=== PATIENT | female | born 1980 | race Caucasian/White ===

== ENCOUNTER 2022-11-23 00:35 | Emergency (ER) | payer OTHER, MEDICAID ==
[~2022-11-23] VITALS: Ht 165.1 cm; Wt 152.0 kg
[2022-11-23] MEDS ORDERED: HYDROcodone-ACET 5/325MG TAB PO ONE (05:00)
[2022-11-23] MEDS ORDERED: ONDANSETRON ODT 4 MG TAB PO ONE (05:00)
[2022-11-23] MEDS ORDERED: MORPHINE SULFATE 4 MG/ML SYR/VIAL IM ONE (07:15)
[2022-11-23 07:34] VITALS: PULSE 104; RESP 18; TEMP 98.7; O2SAT 96
[2022-11-23] MEDS ORDERED: TAMS-35 PO (07:43)
[2022-11-23 08:18] VITALS: BP 145/93; PULSE 108; RESP 16
== END 2022-11-23 09:16 | disposition home or self-care (01) ==
LOC: ER 00:35
DX: S92.331A Displaced fracture of third metatarsal bone, right foot, initial encounter for closed fracture (principal); N20.0 Calculus of kidney; M25.562 Pain in left knee; I10 Essential (primary) hypertension; E78.5 Hyperlipidemia, unspecified; Z88.0 Allergy status to penicillin; Z79.899 Other long term (current) drug therapy; W18.49XA Other slipping, tripping and stumbling without falling, initial encounter; Y93.01 Activity, walking, marching and hiking; Y92.89 Other specified places as the place of occurrence of the external cause; Y99.8 Other external cause status
CPT/HCPCS: 29515; 72131; 73562; 73630; 96372; 99285; J2270; Q0162